=== PATIENT | female | born 1950 | race Caucasian/White ===

== ENCOUNTER 2016-12-21 04:19 | Inpatient (IN) | payer MEDICARE, BC ==
[2016-12-21] MEDS ORDERED: MAGNESIUM HYDROXIDE 2,400 MG/10 ML CUP PO PRN (06:28)
[2016-12-21] MEDS ORDERED: ACETAMINOPHEN TAB 325 MG TAB PO PRN (06:28)
[2016-12-21] MEDS ORDERED: ZIPRASIDONE 20 MG VIAL IM PRN (06:28)
[2016-12-21] MEDS ORDERED: MAG HYDROX/AL HYDROX/SIMETH 30 ML CUP PO PRN (06:28)
[2016-12-21] MEDS ORDERED: LORazepam 1 MG TAB PO PRN (06:31)
--- NOTE | 2016-12-21 11:15 | P.HP ---
Psychiatric H&P - . History & Physical: Allergies Allergy/AdvReac Type Severity Reaction Status Date / Time Sulfa (Sulfonamide Allergy Rash/Hives,blisters Verified 01/31/16 14:04 Antibiotics) on skin amoxicillin AdvReac Nausea & Verified 01/31/16 14:04 Vomiting & Diarrhea Penicillins AdvReac Nausea & Verified 01/31/16 14:04 Vomiting & Diarrhea Vital Signs Temp 97.9 F 12/21/16 06:18 Pulse 60 12/21/16 06:18 Resp 15 12/21/16 06:18 BP 138/77 12/21/16 06:18 Pulse Ox Intake & Output 12/20/16 12/21/16 12/21/16 18:59 06:59 18:59 Weight 51 kg 12/21/16 11:07 IDENTIFYING DATA: This patient is a 66-year-old female who was admitted to the mental health unit from [facility]. Apparently she overdosed with Xanax as a suicide attempt and was subsequently medically cleared and transferred to our unit. HPI: The patient is fairly lethargic. She is verbally arousable but it is challenging getting her to participate in a full interview. She does state that she's been feeling very depressed she's been tearful sleep has been poor appetite is decreased with subsequent weight loss and her energy has been low. She does admit to overdosing with Xanax quantity of pills unspecified. She states it was an attempt to . She finds herself provoked by her and describes him as a "prude, to him I can't do anything right". She states that she has been treated for depression with Paxil and works with a therapist Kati Ceballos at [facility]. It appears her primary care physician may be prescribing the Paxil. Again a full interview could not be completed. There is no documented history of hypomania xavier or psychosis. PAST PSYCHIATRIC HISTORY: 1 prior inpatient admission several years ago, no prior suicide attempts, she does not recall use of any other psychotropic medications, she reports being an active patient at [facility] PMH: Not clarified at this time, possible hypothyroidism. Medication record has a list of medications not yet confirmed ALLERGIES: Sulfa MEDICATIONS: To be confirmed CHEMICAL DEPENDENCY HISTORY: She reports using alcohol less than monthly no use of marijuana or any illicit drugs she's never been placed in residential treatment for chemical dependency reasons FAMILY PSYCHIATRIC HISTORY: Unknown FAMILY CHEMICAL DEPENDENCY HISTORY: Unknown SOCIAL HISTORY: The patient is 66 years old she is and resides with her . 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 No other information obtainable currently MENTAL STATUS EXAM: The patient is lying in bed she is lethargic she is able to only partially participate in an interview. We were able to get her seated upright in bed but only moments later she laid back down to fall asleep. She endorses a depressed mood affect is flat she endorses recent suicidal ideation but no homicidal ideation. No report or evidence of psychosis she does not present hypomanic or manic at this time. She is oriented to day of the week as being the month is December she identifies the year is 1971. She could not spontaneously name our current location but is aware it is a hospital in [place]. No other cognitive testing possible at this time. STRENGTHS/WEAKNESSES: Drinks: Housing, willingness to receive treatment weaknesses severe psychiatric symptoms possible marital discord INTELLECTUAL FUNCTIONING: Average IMPRESSIONS: [] 1. Major depressive disorder recurrent severe 2. Medical comorbidities to be clarified, recent Xanax overdose 3. Psychosocial dysfunction due to exacerbated symptoms of depression PLAN: The patient has been admitted to the mental health unit she verbalizes she is willing to stay here voluntarily. We will have nursing confirm her other medications and we will restart those that are necessary. The Paxil has been discontinued I will defer initiating another antidepressant until we have a more complete conversation. She will be seen by the applications support engineer for a routine medical consultation. Social work will meet with the patient as soon as possible to complete a psychosocial assessment and begin discharge planning. We will monitor her for safety and encourage her participation in the milieu as appropriate. We will involve her in treatment and discharge planning as she will allow.
[2016-12-21] MEDS ORDERED: Acetaminophen-Codeine 300-30mg TAB PO PRN (13:30)
[2016-12-21] MEDS ORDERED: ALBUTEROL INHALER 60 PUFF/8 GM INHALER INHALATION PRN (13:30)
[2016-12-21] MEDS ORDERED: CYCLOBENZAPRINE 10 MG TAB PO PRN (13:30)
[2016-12-21] MEDS ORDERED: NON-FORMULARY DRUG (Omega-3 Acid Ethyl Esters [Lovaza] 1 GM) PO SCH (13:30)
[2016-12-21] MEDS ORDERED: traMADol 50 MG TAB PO PRN (13:30)
[2016-12-21] MEDS: OXYBUTYNIN XL 5 MG TAB.ER.24 PO SCH (14:41)
[2016-12-21] MEDS: LEVOTHYROXINE 112 MCG TAB PO SCH (14:41)
[2016-12-21] MEDS: PRIMIDONE 50 MG TAB PO SCH (14:41)
[2016-12-21] MEDS: NICOTINE 21MG/24HR PATCH TRANSDERM SCH (14:46)
--- NOTE | 2016-12-21 16:52 | CONS ---
DATE OF CONSULTATION: 12/21/2016 REASON FOR CONSULTATION: Medical management requested by Dr. Ho. CONSULTATION: This is a 66-year-old patient of Dr. Angella Rebolledo who was transferred here from [facility]. Patient overdosed on Xanax 0.5 mg tablets; quantity unknown; apparently after getting into an argument with her . ( ) patient was transferred down here. Patient rather dizzy, lethargic, able to speak a few words and dozes off easily. Patient's chronic stable medical conditions include COPD, fibromyalgia, GERD, hyperlipidemia, osteoarthritis, rheumatoid arthritis, hypothyroid. Patient is a smoker. Review of systems is difficult to obtain, as patient is rather lethargic and dozes off. PAST MEDICAL HISTORY: 1. COPD. 2. Fibromyalgia. 3. GERD. 4. Hyperlipidemia. 5. Osteoarthritis. 6. Rheumatoid arthritis. 7. Hypothyroid. 8. Varicose veins. PAST SURGICAL HISTORY: 1. Hysterectomy. 2. Bone reduction, bilateral ulnar. 3. Carpal tunnel, bilateral. PAST PSYCH HISTORY: Anxiety, depression. SOCIAL HISTORY: . Smoking for close to 49 years. Alcohol occasionally. FAMILY HISTORY: Cancer, DVT. HOME MEDICATIONS: 1. Vitamin D3 1000 units p.o. daily. 2. Trazodone 300 mg p.o. at bedtime. 3. Ultram 50 mg p.o. q.4 p.r.n. 4. Vistaril 25 mg p.o. t.i.d. 5. Vesicare 10 mg p.o. daily. 6. Primidone 50 mg p.o. daily. 7. Paxil CR 37.5 mg p.o. daily. 8. Lovaza 1 gram p.o. b.i.d. 9. Singulair 10 mg p.o. at bedtime. 10. Synthroid 112 mcg p.o. daily. 11. Hydrochlorothiazide 25 mg p.o. daily. 12. Gabapentin 600 mg p.o. b.i.d. 13. Flonase 2 sprays each nostril daily. 14. Nexium 20 mg p.o. daily. 15. Colace 200 mg p.o. b.i.d. p.r.n. 16. Flexeril 10 mg p.o. daily p.r.n. 17. Calcium with vitamin D one tablet daily. 18. Qvar 80 mcg 2 puffs b.i.d. 19. Aspirin 325 p.o. daily. 20. ProAir 1 puff b.i.d. p.r.n. 21. Tylenol #3 one tablet q.i.d. p.r.n. 22. Xanax 0.5 p.o. b.i.d. p.r.n. ALLERGIES: 1. SULFA. 2. AMOXICILLIN. 3. PENICILLIN. On examination, temperature 97.9, pulse 60, respiration 15, blood pressure 138/77, pulse ox 97% on room air. GENERAL APPEARANCE: Lying in bed. Very lethargic but arousable. BMI 18.1. EYES: Pupils equal. Conjunctivae normal. HEENT: Oral cavity normal. NECK: JVD unable to assess. Mass not palpable. RESPIRATORY: Effort normal. LUNGS: Diminished breath sounds. CARDIOVASCULAR: First and second sounds normal. No edema. ABDOMEN: Soft, non-tender. Liver and spleen not palpable. LYMPHATIC: No lymph node palpable in neck or axillae. PSYCHIATRY: Unable to assess. Patient is rather lethargic. NEUROLOGICAL: Pupils equal. No facial asymmetry. Power and sensation grossly intact. Moving all 4 limbs. INVESTIGATIONS: Currently no labs. ASSESSMENT: 1. Overdose of Xanax 0.5, intentional. 2. Acute metabolic encephalopathy from Xanax. 3. Chronic obstructive pulmonary disease in a current smoker. 4. Chronic fibromyalgia. 5. Gastroesophageal reflux disease. 6. Hyperlipidemia. 7. Primary osteoarthritis in multiple joints. 8. Rheumatoid arthritis, chronic. 9. Hypothyroidism. PLAN: Patient's home medications will be resumed. Patient will be given a nicotine patch. Psych medicines as per Dr. Ho. Xanax is rather short-acting and should be out of the system in a few hours. Thank you, Dr. Ho.
[2016-12-21] MEDS: BECLOMETHASONE DIP 80 MCG/PUFF INHALER INHALATION SCH (21:12)
[2016-12-21] MEDS: GABAPENTIN 300 MG CAP PO SCH (21:58)
[2016-12-21] MEDS: MONTELUKAST 10 MG TAB PO SCH (21:58)
[2016-12-22] MEDS: LEVOTHYROXINE 112 MCG TAB PO SCH (06:03)
[2016-12-22] MEDS: PANTOPRAZOLE 40 MG TABLET PO SCH (09:29)
[2016-12-22] MEDS: ASPIRIN 325 MG TAB PO SCH (09:29)
[2016-12-22] MEDS: GABAPENTIN 300 MG CAP PO SCH ×2 (09:29→21:18)
[2016-12-22] MEDS: OXYBUTYNIN XL 5 MG TAB.ER.24 PO SCH (09:29)
[2016-12-22] MEDS: PRIMIDONE 50 MG TAB PO SCH (09:29)
[2016-12-22] MEDS: NICOTINE 21MG/24HR PATCH TRANSDERM SCH (09:36)
[2016-12-22] MEDS: BECLOMETHASONE DIP 80 MCG/PUFF INHALER INHALATION SCH ×2 (11:15→20:24)
--- NOTE | 2016-12-22 15:21 | P.PN ---
Progress Note - Text Interval history: The patient is found in her room she follows me to an interview room. She states that her mood is sad she's depressed and she is frequently tearful. She is alert today and does not appear lethargic. She states she recently saw Dr. Sparks and he titrated her Paxil CR to 50 mg. We discussed that she has been on that medication for numerous years in fact over a decade and it is likely no longer effective for her. We also discussed anticholinergic properties and decided to initiate a different SSRI. She did attend to meals today she has not attended groups. She states that there is an independent depression process going on but in the context of her not appreciating her. Mental status exam: The patient is a thin disheveled female appearing her stated age. Her hair is not brushed she is dressed in hospital gowns. She ambulates slowly without ataxia. Eye contact is good. She describes a depressed mood she is tearful during the session. She is able to demonstrate appropriate smiling however as well. She is endorsing no homicidal ideation intent or plan. She is endorsing no symptoms of psychosis there is no evidence of psychosis. She is oriented to person place and date. Insight and judgment limited. No psychomotor agitation. Plan: The patient will start Lexapro 10 mg daily. She has been successful with Paxil for several years so we will try another SSRI. We discussed potential benefits and side effects of Lexapro and her questions were answered. Vital signs reviewed. We will monitor her for safety and encourage her participation in the milieu.
[2016-12-22] MEDS: ESCITALOPRAM 10 MG TAB PO SCH (16:09)
--- NOTE | 2016-12-22 19:59 | PN ---
DATE OF SERVICE: 12/22/2016 PRESENTING COMPLAINT: Xanax overdose. INTERVAL HISTORY: This patient is status post Xanax overdose, now far more awake. Patient feeling tired, but did tolerate some diet. Review of systems done for constitutional, cardiovascular, cardiovascular, GI, pertinent relevant findings as above. Current medications are reviewed. On examination, temperature 97.6, pulse 59, respirations 16, blood pressure 127/58. General appearance: Sitting up, not in distress. EYES: Pupils equal. Conjunctivae normal. NECK: JVD not raised. Mass not palpable. RESPIRATORY : Effort normal. LUNGS: Diminished breath sounds. CARDIOVASCULAR: First and second sounds normal. No edema. ABDOMEN: Soft, nontender. Liver and spleen not palpable. PSYCHIATRY: Alert and oriented times three. Mood and affect low appearing. INVESTIGATIONS: No blood work from today. ASSESSMENT: 1. Overdose of Xanax 0.5 intentional now resolved. 2. Acute metabolic encephalopathy from Xanax on presentation, now resolved. 3. Chronic obstructive pulmonary disease in a smoker. 4. Chronic fibromyalgia. 5. Gastroesophageal reflux disease. 6. Hyperlipidemia. 7. Primary osteoarthritis in multiple joints. 8. Rheumatoid arthritis, chronic. 9. Hypothyroidism. Care was discussed with the patient. Continue current medications and treatment plan.
[2016-12-22] MEDS: MONTELUKAST 10 MG TAB PO SCH (21:19)
[2016-12-22 22:05] LABS: Appearance,Urine Clear (Clear); Bacteria,Urine Rare /hpf; Bilirubin,Urine Negative (Negative); Glucose,Urine (UA) Negative (Negative); Ketones,Urine Negative (Negative); Leukocyte Esterase,Urine Small (Negative); Mucus,Urine Rare /hpf; Nitrite,Urine Positive (Negative); Particle Count 35323; Protein,Urine Negative (Negative); Squamous Epithelial Cell,Urine 2 /hpf (0-4); UA Billing (MACRO vs. MICRO) MICRO; Urobilinogen,Urine <2.0 mg/dL (<2.0); WBC,Urine 5 /hpf (0-5)
[2016-12-23] MEDS: LEVOTHYROXINE 112 MCG TAB PO SCH (06:50)
[2016-12-23] MEDS: PANTOPRAZOLE 40 MG TABLET PO SCH (07:59)
[2016-12-23] MEDS: PRIMIDONE 50 MG TAB PO SCH (08:54)
[2016-12-23] MEDS: ESCITALOPRAM 10 MG TAB PO SCH (08:54)
[2016-12-23] MEDS: NICOTINE 21MG/24HR PATCH TRANSDERM SCH (08:54)
[2016-12-23] MEDS: ASPIRIN 325 MG TAB PO SCH (08:55)
[2016-12-23] MEDS: OXYBUTYNIN XL 5 MG TAB.ER.24 PO SCH (08:55)
[2016-12-23] MEDS: GABAPENTIN 300 MG CAP PO SCH ×2 (08:55→21:10)
--- NOTE | 2016-12-23 09:37 | P.PN ---
Progress Note - Text Interval history: The patient is found in the hallway she follows me to an interview room. She states that she did attend group this morning. She is troubled that she had some difficulty sleeping last night. She had a visit from her daughter in that was supportive. She states that they both agree that the patient's and be irritable and overly critical. She states her children have demanded that he go to counseling. The patient reports that her appetite is improving. We reviewed her medication she has no questions or concerns. Mental status exam: The patient is a thin female appearing her stated age. She has a disheveled appearance she is dressed in hospital gowns. Eye contact is good speech is fluent spontaneous nonpressured. She endorses a depressed mood she again is tearful during the session in discussing her 's behavior. She does find this overwhelming. She feels safe here in the hospital and is expressing no acute suicidal ideation here no homicidal ideation. No report or evidence of psychosis hypomania or xavier. She demonstrates no psychomotor slowing or agitation. She is oriented to person place and date. Plan: The patient will continue on her current medications we will utilize Ambien 5 mg at bedtime while she is in the hospital. We will monitor her for safety encourage her participation in the milieu. Vital signs reviewed.
[2016-12-23] MEDS: BECLOMETHASONE DIP 80 MCG/PUFF INHALER INHALATION SCH (11:06)
[2016-12-23 13:04] VITALS: BMI 18.3
[2016-12-23] MEDS: MONTELUKAST 10 MG TAB PO SCH (21:11)
[2016-12-23] MEDS: ZOLPIDEM 5 MG TAB PO SCH (21:12)
[2016-12-24] MEDS: PANTOPRAZOLE 40 MG TABLET PO SCH (06:50)
[2016-12-24] MEDS: LEVOTHYROXINE 112 MCG TAB PO SCH (06:51)
[2016-12-24] MEDS: ESCITALOPRAM 10 MG TAB PO SCH (09:34)
[2016-12-24] MEDS: PRIMIDONE 50 MG TAB PO SCH (09:35)
[2016-12-24] MEDS: OXYBUTYNIN XL 5 MG TAB.ER.24 PO SCH (09:35)
[2016-12-24] MEDS: ASPIRIN 325 MG TAB PO SCH (09:35)
[2016-12-24] MEDS: GABAPENTIN 300 MG CAP PO SCH ×2 (09:35→20:47)
[2016-12-24] MEDS: NICOTINE 21MG/24HR PATCH TRANSDERM SCH (09:36)
--- NOTE | 2016-12-24 10:24 | P.PN ---
Progress Note - Text Interval history: The patient is found in group she follows me to an interview room. She reports having a pleasant visit with her daughter and stepdaughter last evening. She is hoping that her will follow-through with counseling to address his anger. The patient remains compliant with her medication. Sleep was improved last night with Ambien up until the fire drill. The patient reports she is beginning to feel more hopeful and feels outpatient mental health services will be of benefit. Mental status exam: The patient is alert she seated calmly she is dressed in her own clothing. Eye contact is appropriate. Speech is fluent spontaneous nonpressured. She is noticed to have a tremor or tic involving her lower lip. She states that has been a chronic phenomenon. She states that suicidal thoughts are resolving she is feeling more hopeful. She is endorsing no homicidal ideation intent or plan. No evidence or report of psychosis she does not appear hypomanic or manic. She is oriented to person place and date. Insight and judgment improving. Plan: The patient will continue on her current medication we will anticipate a discharge possibly tomorrow. Social work will arrange a support meeting likely involving her . We will continue to monitor for safety.
[2016-12-24] MEDS: BECLOMETHASONE DIP 80 MCG/PUFF INHALER INHALATION SCH ×2 (10:45→21:46)
[2016-12-24] MEDS: ZOLPIDEM 5 MG TAB PO SCH (20:47)
[2016-12-24] MEDS: MONTELUKAST 10 MG TAB PO SCH (20:47)
[2016-12-24 20:50] VITALS: RESP 18
[2016-12-25 06:23] VITALS: BP 111/77; PULSE 62; TEMP 97.8
[2016-12-25] MEDS: LEVOTHYROXINE 112 MCG TAB PO SCH (06:34)
--- NOTE | 2016-12-25 08:41 | P.DS ---
Providers Date of admission: 12/21/16 05:09 Expected date of discharge: 12/25/16 Attending physician: Malik Soto Consults: 12/21/16 06:28 Consult Physician Routine Consulting Provider: Nolan Stearns Consult Reason/Comments: medial management Do you want consulting provider notified?: Yes, Notify in am Primary care physician: Nolan Stearns - Discharge Diagnosis(es) (1) Major depressive disorder, recurrent severe without psychotic features Current Visit: Yes Status: Acute Priority: High Hospital Course: Brief summary of admission note: The patient is a 66-year-old female who was admitted to the mental health unit from [facility]. The patient reportedly overdosed with Xanax as a suicide attempt. She was medically cleared and transferred to our unit. The patient reported that she's been feeling very depressed, tearful on a regular basis, experiencing poor appetite with weight loss and low energy. She reports overdosing as she felt overwhelmed with her 's behavior. She stated he was overly critical and she felt like she couldn't do anything right. She had been treated with Paxil for numerous years and it appears that the medication is no longer providing benefit. For full details please refer to my psychiatric evaluation dated 12/21. Summary of hospital course: The patient was admitted to the mental health unit she did sign in voluntarily. We reviewed her medication options in the context of her presenting symptoms. We decided to discontinue Paxil and initiate Lexapro 10 mg daily. The patient underwent a routine medical consultation. The patient demonstrated no agitated behavior. She reported a progressive improvement of symptoms while here. She was lethargic the first day I met with her but subsequent to that she was alert and cooperative. She did have beneficial conversations with her daughter and stepdaughter and even her . She feels that they have made some changes that will make it more conducive to working out their differences. She notes a resolution of her suicidal thoughts. Mental status exam: The patient is a thin female appearing her stated age. Eye contact is appropriate speech is fluent nonpressured and is spontaneous. She reports her mood is "much better" affect is euthymic. She is reporting no hopelessness thinking no suicidal or homicidal ideation intent or plan. She is endorsing no auditory or visual hallucinations she is endorsing no specific delusions there is no evidence of psychosis at this time. She does not appear to be hypomanic or manic. Insight and judgment have improved. Cognitively she remains oriented to person place and date. There is no psychomotor slowing or agitation there is no verbal or physical aggressiveness demonstrated. Impressions 1. Major depressive disorder recurrent severe without psychosis 2. Medical comorbidities, presenting with Xanax overdose 3. Psychosocial dysfunction due to exacerbated symptoms of depression in the context of marital strain Plan: The patient will be discharged home today. She will continue on Lexapro 10 mg daily. She will follow up with her primary care physician as needed. Social work will arrange the patient's outpatient mental health follow-up. The patient is reporting no suicidal or homicidal ideation she is able to participate in her own activities of daily living. She is instructed to return to the hospital with any acute safety concerns. She is encouraged not to use Xanax or any other benzodiazepine. Patient Condition at Discharge: Stable Plan - Discharge Summary New Discharge Prescriptions: Escitalopram [Lexapro] 10 mg PO DAILY #30 tab Discharge Medication List Cyclobenzaprine [Flexeril] 10 mg PO TID PRN 06/29/15 [History] Montelukast Sodium [Singulair] 10 mg PO HS 06/29/15 [History] Marlin-3 Acid Ethyl Esters [Lovaza] 1 gm PO BID 06/29/15 [History] Albuterol Sulfate [Proair Hfa] 1 puff INHALATION RT-BID PRN 01/31/16 [History] Beclomethasone Dipropionate [Qvar 80 mcg/puff] 2 puff INHALATION RT-BID [History] Calcium Carbonate/Vitamin D3 [Calcium 600-Vit D3 400 Tablet] 1 tab PO DAILY [History] Cholecalciferol [Vitamin D3] 1,000 unit PO DAILY 01/31/16 [History] Levothyroxine Sodium [Synthroid] 112 mcg PO QAM 02/06/16 [History] Acetaminophen with Codeine [Acetaminophen-Cod #3 Tablet] 1 tab PO QID PRN [History] Aspirin 325 mg PO DAILY 12/21/16 [History] Docusate [Colace] 200 mg PO BID PRN 12/21/16 [History] Esomeprazole Magnesium [NexIUM] 20 mg PO DAILY 12/21/16 [History] Fluticasone Nasal Nickerson [Flonase Nasal Nickerson] 2 spr EA NOSTRIL DAILY 12/21/16 [ History] Gabapentin 600 mg PO BID 12/21/16 [History] Hydrochlorothiazide [Hydrodiuril] 25 mg PO DAILY 12/21/16 [History] Primidone 50 mg PO DAILY 12/21/16 [History] Solifenacin Succinate [Vesicare] 10 mg PO DAILY 12/21/16 [History] hydrOXYzine PAMOATE [Vistaril] 25 mg PO TID 12/21/16 [History] Escitalopram [Lexapro] 10 mg PO DAILY #30 tab 12/25/16 [Rx]
[2016-12-25] MEDS: BECLOMETHASONE DIP 80 MCG/PUFF INHALER INHALATION SCH (09:02)
[2016-12-25] MEDS: PANTOPRAZOLE 40 MG TABLET PO SCH (09:22)
[2016-12-25] MEDS: ASPIRIN 325 MG TAB PO SCH (09:22)
[2016-12-25] MEDS: OXYBUTYNIN XL 5 MG TAB.ER.24 PO SCH (09:22)
[2016-12-25] MEDS: ESCITALOPRAM 10 MG TAB PO SCH (09:22)
[2016-12-25] MEDS: PRIMIDONE 50 MG TAB PO SCH (09:22)
[2016-12-25] MEDS: GABAPENTIN 300 MG CAP PO SCH (09:22)
== END 2016-12-25 12:48 | disposition home or self-care (01) | DRG 885 ==
LOC: 3MHU 05:09
PROVIDERS: ADMIT Psychiatry & Neurology Psychiatry; ATTEND Psychiatry & Neurology Psychiatry
DX: F33.2 Major depressive disorder, recurrent severe without psychotic features (principal); G92 Toxic encephalopathy; E03.9 Hypothyroidism, unspecified; E78.5 Hyperlipidemia, unspecified; F17.200 Nicotine dependence, unspecified, uncomplicated; J44.9 Chronic obstructive pulmonary disease, unspecified; K21.9 Gastro-esophageal reflux disease without esophagitis; M06.9 Rheumatoid arthritis, unspecified; M15.9 Polyosteoarthritis, unspecified; M79.7 Fibromyalgia; T42.4X1A Poisoning by benzodiazepines, accidental (unintentional), initial encounter; Z79.899 Other long term (current) drug therapy; F59 Unspecified behavioral syndromes associated with physiological disturbances and physical factors
CPT/HCPCS: 81001

== ENCOUNTER → 2018-12-17 | Outpatient (CLI) | payer MEDICARE ==
--- NOTE | 2018-12-19 09:43 | MM ---
Reason for exam: screening (asymptomatic). Last mammogram was performed 3 years and 2 months ago. History: Patient is postmenopausal and history of other cancer. Family history of breast cancer in sister. Benign excisional biopsy, November 03, 2001. Took hormonal contraceptives for 2 years. Physical Findings: A clinical breast exam by your physician is recommended on an annual basis and results should be correlated with mammographic findings. MG 3D Screening Mammo W/Cad Bilateral CC and MLO view(s) were taken. Prior study comparison: October 10, 2015, mammogram, performed at [facility]. January 27, 2014, mammogram, performed at [facility]. The breast tissue is heterogeneously dense. This may lower the sensitivity of mammography. No suspicious abnormality. No significant changes when compared with prior studies. ASSESSMENT: Negative, BI-RAD 1 RECOMMENDATION: Routine screening mammogram of both breasts in 1 year.
== END | disposition home or self-care (01) ==
LOC: RADMAMWWP 13:40
PROVIDERS: ATTEND Family Medicine
DX: Z12.31 Encounter for screening mammogram for malignant neoplasm of breast (principal)
CPT/HCPCS: 77063; 77067

== ENCOUNTER → 2019-11-20 | Outpatient (CLI) | payer MEDICARE ==
--- NOTE | 2019-11-20 13:07 | US ---
EXAMINATION TYPE: US venous doppler duplex LE DATE OF EXAM: 11/20/2019 12:21 PM COMPARISON: NONE CLINICAL HISTORY: M79.662 PAIN LT LOWER LIMB,R22.42 SWELLING LT LOWER LIMB. No hx DVT. No redness. No swelling. No leg pain. Left big toe pain. Not on blood thinners. SIDE PERFORMED: Bilateral TECHNIQUE: The lower extremity deep venous system is examined utilizing real time linear array sonog janice with graded compression, doppler sonography and color-flow sonography. VESSELS IMAGED: External Iliac Vein (EIV) Common Femoral Vein Deep Femoral Vein Greater Saphenous Vein * Femoral Vein Popliteal Vein Small Saphenous Vein * Proximal Calf Veins (* superficial vessels) Right Leg: Negative for DVT Left Leg: Negative for DVT IMPRESSION: 1. Bilateral lower extremity ultrasound negative for deep venous thrombosis.
--- NOTE | 2019-11-25 10:19 | P.ARTDOP ---
Arterial Doppler LOWER EXTREMITY ARTERIAL DOPPLER: DATE OF SERVICE: 11/20/2019 Reason for study: Pain left foot. Doppler waveforms: Multiphasic to the popliteal on the right and atypical below. Multiphasic at the left femoral, atypical at the popliteal and monophasic below.. Pulse volume recording: []. Pressure gradients: Infrapopliteal on the right and across the popliteal and infrapopliteal on the left. Ankle-brachial indices: 0.74 on the right and 0.46 on the left. Toe brachial indices: [] on the right, [] on the left Impression: Moderate infrapopliteal disease on the right. Moderate to severe disease left popliteal and below. Clinical correlation recommended. Consider vascular surgical consultation..
== END | disposition home or self-care (01) ==
LOC: RADUSWWP 11:45
PROVIDERS: ATTEND Family Medicine
DX: I77.89 Other specified disorders of arteries and arterioles (principal); M79.662 Pain in left lower leg; R22.42 Localized swelling, mass and lump, left lower limb; R09.89 Other specified symptoms and signs involving the circulatory and respiratory systems
CPT/HCPCS: 93923; 93970

== ENCOUNTER → 2021-02-21 | Outpatient (CLI) | payer MEDICARE ==
--- NOTE | 2021-02-21 12:48 | BD ---
EXAMINATION TYPE: Axial Bone Density DATE OF EXAM: 02/21/2021 COMPARISON: NONE CLINICAL HISTORY: 70 YR OLD FEMALE,,,,ICD-10 CODE: Z78 POST MENOPAUSAL Height: 63.9 Weight: 120 FRAX RISK QUESTIONS: Family History (Parent hip fracture): NO FX Glucocorticoids (More than 3mos): YES (Ex: prednisone, prednisolone, methylprednisolone, dexamethasone, and hydrocortisone). 3. Menopause before 45: AT 43 YRS OLD Current Tobacco Use: YES RISK FACTORS HISTORY OF: Family History of Osteoporosis: YES, HER MOTHER, NO HIP FX Diet low in dairy products/other sources of calcium: YES, LACTOSE INTOLERANT Postmenopausal woman: YES, HYST AT AGE 43 Hyperparathyroidism: NO Adrenal Insufficiency: NO MEDICATIONS: Prednisone or other steroids: YES, QVAR AND PRO AIR, ASTHMA, COPD, EMPHYSEMA How Long: OVER 15 YRS Thyroid Medications: YES, SYNTHROID, FOR ABOUT 20+ YRS Additional Medications: ANTI-DEPRESSANTS AND ANTI ANXIETY MEDS, CRESTOR, VIT D AND CALCIUM Additional History: DEPRESSION, CHOLESTEROL, ASTHMA, COPD, EMPHYSEMA, ARTHRITIS, LT TKR EXAM MEASUREMENTS: Bone mineral densitometry was performed using the [employer] System. Bone mineral density as measured about the Lumbar spine is: ----- L1-L4(G/cm2): 0.941 T Score Values are as follows: ----- L1: -2.1 ----- L2: -2.1 ----- L3: -2.0 ----- L4: -1.9 ----- L1-L4: -2.0 Bone mineral density FIRST BONE DENSITY AT [facility] Bone mineral density about the R hip (g/cm2): 0.743 Bone mineral density about the L hip (g/cm2): 0.682 T Score values are as follows: -----R Neck: -2.4 -----L Neck: -2.9 -----R Total: -2.1 -----L Total: -2.6 Bone mineral density FIRST BONE DENSITY AT [facility] FRAX%S: THERE IS A 29.8% CHANCE FOR A MAJOR OSTEOPOROTIC FX AND A 17.0% FOR HIP.....PROBABILITY FO R FX IN 10 YRS TIME IMPRESSION: Osteoporosis (T Score less than -2.5). There is increased fracture risk and therapy is usually indicated based on age. Re-Screen 1-2 years. NOTE: T-SCORE=SD OF THE YOUNG ADULT MEAN.
--- NOTE | 2021-02-22 13:51 | MM ---
Reason for exam: screening (asymptomatic). Last mammogram was performed 2 years and 2 months ago. History: Patient is postmenopausal and history of other cancer. Family history of breast cancer in sister. Benign excisional biopsy, November 03, 2001. Took hormonal contraceptives for 2 years. Physical Findings: A clinical breast exam by your physician is recommended on an annual basis and results should be correlated with mammographic findings. MG Screening Mammo w CAD Bilateral CC and MLO view(s) were taken. Prior study comparison: December 17, 2018, bilateral MG 3d screening mammo w/cad. October 10, 2015, mammogram, performed at [facility]. The breast tissue is heterogeneously dense. This may lower the sensitivity of mammography. No significant changes when compared with prior studies. ASSESSMENT: Benign, BI-RAD 2 RECOMMENDATION: Routine screening mammogram of both breasts in 1 year.
== END | disposition home or self-care (01) ==
LOC: RADBDWWP 10:31
PROVIDERS: ATTEND Family Medicine
DX: Z12.31 Encounter for screening mammogram for malignant neoplasm of breast (principal); M81.0 Age-related osteoporosis without current pathological fracture; M85.89 Other specified disorders of bone density and structure, multiple sites; Z78.0 Asymptomatic menopausal state; Z80.3 Family history of malignant neoplasm of breast
CPT/HCPCS: 77067; 77080

== ENCOUNTER → 2022-02-22 | Outpatient (CLI) | payer MEDICARE ==
--- NOTE | 2022-02-23 12:53 | MM ---
Reason for exam: screening (asymptomatic). Last mammogram was performed 1 year ago. History: Patient is postmenopausal and history of other cancer. Family history of breast cancer in sister. Benign excisional biopsy, November 03, 2001. Took hormonal contraceptives for 2 years. Physical Findings: A clinical breast exam by your physician is recommended on an annual basis and results should be correlated with mammographic findings. MG Screening Mammo w CAD Bilateral CC and MLO view(s) were taken. Prior study comparison: February 21, 2021, bilateral MG screening mammo w CAD. December 17, 2018, bilateral MG 3d screening mammo w/cad. The breast tissue is heterogeneously dense. This may lower the sensitivity of mammography. Focal asymmetry upper left MLO. ASSESSMENT: Incomplete: need additional imaging evaluation, BI-RAD 0 RECOMMENDATION: Special view mammogram of the left breast. If lesion persists on supplemental views, image directed ultrasound is recommended. [facility] will attempt to contact patient to return for supplemental views and ultrasound if indicated.
== END | disposition home or self-care (01) ==
LOC: RADMAMWWP 12:26
PROVIDERS: ATTEND Family Medicine
DX: Z12.31 Encounter for screening mammogram for malignant neoplasm of breast (principal); Z78.0 Asymptomatic menopausal state; Z80.3 Family history of malignant neoplasm of breast
CPT/HCPCS: 77067

== ENCOUNTER → 2022-02-27 | Outpatient (CLI) | payer MEDICARE ==
--- NOTE | 2022-02-27 13:38 | MM ---
Reason for Exam: Additional evaluation requested from abnormal screening. Last screening mammogram was performed less than 1 month ago. Patient History: Menarche at age 11. First Full-Term at age 21. Hysterectomy at age 48. Postmenopausal. Other cancer at or over age 48. Patient used Hormonal Contraceptives for 2 years. Benign Excisional Biopsy. Sister had breast cancer at or over age 50. Risk Values: Roxie 5 year model risk: 4.0%. NCI Lifetime model risk: 9.6%. Film Views: 3D and 2D Synthesized Left spot compression CC views were taken. 3D and 2D Synthesized Left spot compression MLO views were taken. 3D and 2D Synthesized Left LM views were taken. Prior Study Comparison: 12/17/2018 Bilateral Screening Mammogram, [facility]. 02/21/2021 Bilateral Screening Mammogram, [facility]. 02/22/2022 Bilateral Screening Mammogram, [facility]. Tissue Density: Left: There are scattered fibroglandular densities. Findings: Analyzed By CAD. The questioned superior focal asymmetry disperses on additional views. Old post excisional changes are demonstrated. No significant change from prior exams. Overall Assessment: Benign, BI-RAD 2 Management: Screening Mammogram of both breasts in 1 year. 1.) Patient should continue monthly self breast exams. 2.) A clinical breast exam by your physician is recommended on an annual basis and results should be correlated with mammographic findings. Results were given to the patient verbally at the time of exam.
== END | disposition home or self-care (01) ==
LOC: RADMAMWWP 12:35
PROVIDERS: ATTEND Family Medicine
DX: R92.8 Other abnormal and inconclusive findings on diagnostic imaging of breast (principal); Z78.0 Asymptomatic menopausal state; Z80.3 Family history of malignant neoplasm of breast
CPT/HCPCS: 77065; G0279; 77061

== ENCOUNTER → 2022-09-12 | Outpatient (CLI) | payer MEDICARE ==
--- NOTE | 2022-09-12 15:18 | XR ---
EXAMINATION TYPE: XR lumbar spine 2 or 3V DATE OF EXAM: 09/12/2022 Comparison: None Clinical History: 72-year-old female M51.36 Lumbar disc degeneration Findings: Osteopenia. 5 lumbar type vertebral bodies. Hypertrophic facet arthropathy throughout. Vertebral body heights and alignment are maintained. Disc interspaces also relatively maintained. Impression: Osteopenia with hypertrophic facet arthropathy. No vertebral compression collapse or malalignment see n.
== END | disposition home or self-care (01) ==
LOC: RADXRMAIN 14:13
PROVIDERS: ATTEND Physician Assistant Medical
DX: M47.816 Spondylosis without myelopathy or radiculopathy, lumbar region (principal); M51.36 Other intervertebral disc degeneration, lumbar region
CPT/HCPCS: 72100

== ENCOUNTER → 2022-09-12 | Outpatient (CLI) | payer MEDICARE ==
[2022-09-12 13:48] VITALS: BP 138/90; PULSE 104; RESP 16; TEMP 98
--- NOTE | 2022-09-12 14:45 | P.PAINPG ---
Objective - Vital Signs Vital signs: Intake & Output 09/11/22 09/12/22 09/12/22 18:59 06:59 18:59 Weight 55.792 kg PQRS Measure Charge Sheet Comment: HISTORY OF PRESENT ILLNESS: 72 yr old female as a referral from Dr Banks presents today w severe and chronic LBP secondary to for evaluation. Pt states pain level is at 8/10 in intensity w provocation, constant, localized in the mid to lower lumbar spine, achy in character without radiating pain. Pain is provoked by waling/ bending/ standing for periods of 15 min or more. Pain is alleviated by PT integrated w massage in 2003, injections, heat, meds (Ibu, Tylenol ES, Salon Pas), repositioning and rest. PMH: Asthma, COPD, Fibromyalgia, GERD, Hyperlipidemia, OA, OP, RA, Hypothyroidism, MDD/ Anxiety PSH: Hysterectomy, BL Ulnar Reduction Surgery, BL Carpal Tunnel Release SH: 49 pack/ yr tobacco use (Quit 1965), Occasional ETOH use, No illicit drug use FH: Mo- No Reported History. Fa- No Reported History. Sis- CA/ DVT. All: See list Meds: See list REVIEW OF ORGAN SYSTEMS: CONSTITUTIONAL: No fevers or chills. No recent weight loss. NEUROLOGICAL: + numbness and tingling along the distal extremities. No seizure disorders or headaches. MUSCULOSKELETAL: + pain PSYCHIATRIC: Denies current depression or suicidal thoughts. Physical Examinations : Constitutional : Cooperative , not in acute distress . Neurologic : Cranial nerve II to XII intact. No focal neurological deficits. Psychiatric : alert & oriented x 3. Matching mood & appropriate affect. Judgment & insight intact. Musculoskeletal : Cervical Spine Motor strength in the deltoid and biceps: Normal right side. Normal Left side Motor strength biceps and the wrist extensors: Normal right side . Normal left side Motor strength in the triceps muscle: Normal right side. Normal left side Deep tendon reflexes: Normal at the biceps. Normal at Brachioradialis. Normal at triceps Vertebral body tenderness to deep palpation over Cervical facet loading test: positive bilaterally Spurling test: positive bilaterally Neck distraction test: positive bilaterally Miles sign: positive bilaterally Lumbar spine Motor strength lower extremities ,thigh and legs 5/5 Right side , 5/5 Left side Deep tendon reflexes : Normal Knee Jerk. Normal Ankle Jerk Vertebral body tenderness over Lumbar facet Loading Test: positive Right / positive Left over BL L4-L5, L5-S1 Range of motion of the lumbar spine Flexion 30 degrees, extension 10 degrees Straight Leg Raise test: Left/ Right positive at degree Angelito test: positive right / positive left. Severe tenderness over the Sacroiliac joint on the Right / Left sides Gaenslen test: positive bilaterally Seated flexion test: positive bilaterally. Sacral spine : Severe tenderness over the Sacroiliac joint: right side / left side Range of motion: Flexion of the lumbar spine <60 degrees Range of motion: Extension of the lumbar spine <20 degrees Gaenslen's Test positive Zeeshan's Test positive Angelito test: positive right side / left side Thigh Thrust Test Sacral Thrust Test Imaging: None on file Assessment/ Plan : Lumbar DDD Recommendation of Lumbar x ray re: M51.36. Will also benefit from PT 2 x / wk x 6 wks re: M51.36 Pt may need additional testing if indicated. She may return to this clinic in 6 wks for a reevaluation. All questions answered. I have spent greater than 30 minutes on patient care today. Dr Amaro was available by phone for the evaluation of this patient. The time was used to review the medical records including relevant urine studies and Prescription history (MAPs), review of the available imaging, evaluation and examination of the patient, coordination of care with the medical staff and if applicable referring physicians, as well as creation of the medical record PQRS Narrative: Smoking Status Current every day smoker Home Medications: Ambulatory Orders Cyclobenzaprine [Flexeril] 10 mg PO TID PRN 06/29/15 Montelukast Sodium [Singulair] 10 mg PO HS 06/29/15 [place]-3 Acid Ethyl Esters [Lovaza] 1 gm PO BID 06/29/15 Albuterol Sulfate [Proair Hfa] 1 puff INHALATION RT-BID PRN 01/31/16 Beclomethasone Dipropionate [Qvar 80 mcg/puff] 2 puff INHALATION RT-BID 01/31/16 Calcium Carbonate/Vitamin D3 [Calcium 600-Vit D3 400 Tablet] 1 tab PO DAILY 01/31/16 Cholecalciferol [Vitamin D3 (25 Mcg = 1000 Iu)] 1,000 unit PO DAILY 01/31/16 Levothyroxine Sodium [Synthroid] 112 mcg PO QAM 02/06/16 Acetaminophen with Codeine [Acetaminophen-Cod #3 Tablet] 1 tab PO QID PRN 12/21/16 Aspirin 325 mg PO DAILY 12/21/16 Docusate [Colace] 200 mg PO BID PRN 12/21/16 Esomeprazole Magnesium [NexIUM] 20 mg PO DAILY 12/21/16 Fluticasone Nasal [place] [Flonase Nasal [place]] 2 spr EA NOSTRIL DAILY 12/21/16 Gabapentin 600 mg PO BID 12/21/16 Primidone 50 mg PO DAILY 12/21/16 Solifenacin Succinate [Vesicare] 10 mg PO DAILY 12/21/16 hydrOXYzine pamoate [Vistaril] 25 mg PO TID 12/21/16 hydroCHLOROthiazide [Hydrodiuril] 25 mg PO DAILY 12/21/16 Escitalopram [Lexapro] 10 mg PO DAILY #30 tab 12/25/16 Controlled Substance Measures - Controlled Substance Measures Is patient prescribed a controlled substance at discharge?: No
== END ==
LOC: PNWHC3 13:15
PROVIDERS: ATTEND Specialist
DX: M51.36 Other intervertebral disc degeneration, lumbar region (principal); F17.200 Nicotine dependence, unspecified, uncomplicated; Z88.2 Allergy status to sulfonamides; Z88.0 Allergy status to penicillin
CPT/HCPCS: 99211

== ENCOUNTER → 2022-10-25 | Outpatient (CLI) | payer MEDICARE ==
[2022-10-25 13:47] VITALS: BP 120/77; PULSE 83; RESP 16; TEMP 98.1
--- NOTE | 2022-10-25 14:46 | P.PAINPG ---
Objective - Vital Signs Vital signs: Vital Signs Temp 98.1 F 10/25/22 13:42 Pulse 83 10/25/22 13:42 Resp 16 10/25/22 13:42 BP 120/77 10/25/22 13:42 Pulse Ox 96 10/25/22 13:42 FiO2 Intake & Output 10/24/22 10/25/22 10/25/22 18:59 06:59 18:59 Weight 55.792 kg PQRS Measure Charge Sheet Mode of Arrival: Ambulatory Comment: A 72 yr old female with a history of severe and chronic low back pain secondary to lumbar DDD and spondylosis with facet arthropathy without myelopathy presents today for x ray results. Pain level is provoked at 9/10 in intensity, constant, localized in the R lumbar spine, dull/ achy in character without shooting pain. Pain is provoked by lifting, walking for periods of 10 min or more. Pain is alleviated with PT x 6 wks which she completed in Sep 2022, home exercise daily, heat, meds (Tyl, Advil), repositioning and rest. Interventional pain procedures completed include Denies Patient is currently on Tylenol OTC, Advil OTC Patient denies any side effects of the medication(s), denies excessive drowsiness or sleepiness, denies suicidal ideation and reports that the current pain medication is helping to control the pain and improve activities of daily living. Patient denies any motor or sensory deficits. Patient denies any fever or night sweats, denies any change in the bowel movements or urination. Physical Examination: -Constitutional: Cooperative. Not in acute distress . - Neurologic: Cranial nerve II to XII intact. No focal neurological deficits. - Psychatric: Alert & oriented x 3. Matching mood & appropriate affect. Judgment and insight intact. - Musculoskeletal: Cervical spine: Muscle bulk/ tone/ strength in the bilateral upper extremities normal Vertebral body tenderness to palpation over Spurling test positive Distraction test positive Facet loading test positive Thoracic spine Muscle bulk / tone/ strength in the bilateral paraspinal muscles normal Vertebral body tender to palpation over Facet loading test positive Lumbar spine: Motor bulk/ tone/ strength lower extremities , thigh and legs : 5/5 Deep tendon reflexes : Normal Knee Jerk. Normal Ankle Jerk . Vertebral body tenderness to palpation over Lumbar Facet Loading Test positive Straight Leg Raise: positive at 30 degrees right side/ left side Gaenslen's Test positive Sacral spine : Severe tenderness over the Sacroiliac joint: right side / left side Range of motion: Flexion of the lumbar spine <60 degrees Range of motion: Extension of the lumbar spine <20 degrees Gaenslen's Test positive BL Angelito test: positive right side / left side Thigh Thrust Test BL Sacral Thrust Test Assessment and plan: Chronic low back pain secondary to lumbar DDD, spondylosis with facet arthropathy without myelopathy, BL Sacroiliitis Recommendation of MRI without contrast of the lumbar spine re: M51.36 May return to this clinic within 2 wks for a re evaluation. Recommendation of BL SI injection. May need a series of injections for optimal pain relief. Risks, benefits of procedure discussed and pt verbalized understanding. Admits anticoagulant use or medical history of diabetes. Protocol for discontinuation/ continuation of medications lucy procedure discussed. All patient questions answered I have spent less than 30 minutes on patient care today. Dr Amaro was available by phone for the evaluation of this patient. The time was used to review the medical records including relevant urine studies and Prescription history (MAPs), review of the available imaging, evaluation and examination of the patient, coordination of care with the medical staff and if applicable referring physicians, as well as creation of the medical record - Pain Location Lower Back Non-Pharmacological Interventions: Heat, Home Exercise, Inactivity, Physical Therapy, Position/Reposition, Stretching Pharmacological Interventions: PRN Medication PQRS Narrative: Smoking Status Current every day smoker Blood Pressure 120/77 Pain Intensity [Lower Back] 0 Scale Used Numeric (1 - 10) Hx Alcohol Use (MH) No Home Medications: Ambulatory Orders Montelukast Sodium [Singulair] 10 mg PO HS 06/29/15 Albuterol Sulfate [Proair Hfa] 1 puff INHALATION RT-BID PRN 01/31/16 Beclomethasone Dipropionate [Qvar 80 mcg/puff] 2 puff INHALATION RT-BID 01/31/16 Calcium Carbonate/Vitamin D3 [Calcium 600-Vit D3 400 Tablet] 1 tab PO DAILY 01/31/16 Cholecalciferol [Vitamin D3 (25 Mcg = 1000 Iu)] 1,000 unit PO DAILY 01/31/16 Levothyroxine Sodium [Synthroid] 112 mcg PO QAM 02/06/16 Solifenacin Succinate [Vesicare] 10 mg PO DAILY 12/21/16 Alendronate Sodium [Fosamax] 10 mg PO DAILY 10/25/22 Ezetimibe [Zetia] 10 mg PO DAILY 10/25/22 Primidone [Mysoline] 50 mg PO DAILY 10/25/22 Rosuvastatin [Crestor] 10 mg PO DAILY 10/25/22 Topiramate [Topamax] 25 mg PO DAILY 10/25/22 busPIRone HCl [Buspar] 5 mg PO BID 10/25/22 Controlled Substance Measures - Controlled Substance Measures Is patient prescribed a controlled substance at discharge?: No
== END ==
LOC: PNWHC3 13:22
PROVIDERS: ATTEND Specialist
DX: M47.816 Spondylosis without myelopathy or radiculopathy, lumbar region (principal); M51.36 Other intervertebral disc degeneration, lumbar region; M46.1 Sacroiliitis, not elsewhere classified; Z88.2 Allergy status to sulfonamides; Z88.0 Allergy status to penicillin; F17.200 Nicotine dependence, unspecified, uncomplicated
CPT/HCPCS: 99211

== ENCOUNTER → 2023-03-04 | Outpatient (CLI) | payer MEDICARE ==
--- NOTE | 2023-03-04 22:46 | BD ---
EXAMINATION TYPE: Axial Bone Density DATE OF EXAM: 03/04/2023 CLINICAL HISTORY: 72 years old Female. ICD-10 CODE: M81.0 OSTEOPOROSIS Height: Weight: FRAX RISK QUESTIONS: Family History (Parent hip fracture): no fx Glucocorticoids (More than 3mos): yes (Ex: prednisone, prednisolone, methylprednisolone, dexamethasone, and hydrocortisone). Secondary Osteoporosis: yes 3. Menopause before 45: at 43 Current Tobacco Use: yes RISK FACTORS HISTORY OF: Family History of Osteoporosis: yes, no fx Postmenopausal woman: yes, at 43 with hysterectomy, Lost more than 2 inches in height since high school: yes Hyperparathyroidism: no Adrenal Insufficiency: no MEDICATIONS: Prednisone or other steroids: yes, over 20 yrs, copd, asthma, inhalers and oral Thyroid Medications: yes, synthroid for 20 + yrs. Osteoporosis Medications: fosamax for 2 yrs now Additional Medications: Ramco, antianxiety/antidepressant meds, statin for cholesterol, vit d and ivana cium, Additional History: anxiety, cholesterol, osteoporosis, thyroid, copd, asthma, EXAM MEASUREMENTS: Bone mineral densitometry was performed using the [employer] System. Bone mineral density as measured about the Lumbar spine is: ----- L1-L4(G/cm2): 0.898 T Score Values are as follows: ----- L1: -2.9 ----- L2: -2.9 ----- L3: -2.2 ----- L4: -1.6 ----- L1-L4: -2.4 Z Score Values are as follows: ----- L1: -0.8 ----- L2: -0.9 ----- L3: -0.2 ----- L4: 0.4 ----- L1-L4: -0.3 Bone mineral density has: Decreased -4.6% since study of: 02.21.2021 Bone mineral density about the R hip (g/cm2): 0.774 Bone mineral density about the L hip (g/cm2): 0.709 T Score values are as follows: -----R Neck: -2.4 -----L Neck: -2.8 -----R Total: -1.9 -----L Total: -2.4 Z Score values are as follows: -----R Neck: -0.3 -----L Neck: -0.7 -----R Total: 0.1 -----L Total: -0.4 Bone mineral density has: Increased 4.1% since study of: 02.21.2021 FRAX%s: The graph provided illustrates a 29.7% chance for a major osteoporotic fx and a 17.1% chance for the hips probability for fx in 10 years time. IMPRESSION: Osteoporosis (T Score less than -2.5). There is increased fracture risk and therapy is usually indicated based on age. Re-Screen 1-2 years. NOTE: T-SCORE=SD OF THE YOUNG ADULT MEAN.
--- NOTE | 2023-03-05 08:14 | MM ---
Reason for Exam: Screening (asymptomatic). Last screening mammogram was performed 12 month(s) ago. Patient History: Menarche at age 11. First Full-Term at age 21. Hysterectomy at age 48. Postmenopausal. Other cancer at or over age 48. Patient used Hormonal Contraceptives for 2 years. Benign Excisional Biopsy. Sister had breast cancer at or over age 50. Risk Values: Roxie 5 year model risk: 4.0%. NCI Lifetime model risk: 9.0%. Prior Study Comparison: 02/21/2021 Bilateral Screening Mammogram, [facility]. 02/22/2022 Bilateral Screening Mammogram, [facility]. 02/27/2022 Left MG 3D work up w/cad , [facility]. Tissue Density: There are scattered fibroglandular densities. Findings: Analyzed By CAD. Left breast: An indeterminant lesion within the left breast seen on MLO view only approximately 14.9 cm from the nipple measuring 11 x 7 mm this could represent a lymph node not seen before. Right breast: There is no suspicious group of microcalcifications or new suspicious mass in either breast. Overall Assessment: Incomplete: need additional imaging evaluation, BI-RAD 0 Management: Diagnostic Mammogram of the left breast. [facility] will attempt to contact patient to return for supplemental views and ultrasound if indicated. Patient should continue monthly self-breast exams. A clinical breast exam by your physician is recommended on an annual basis. This exam should not preclude additional follow-up of suspicious palpable abnormalities. Note on Roxie scores and lifetime risk: 1. A Roxie score greater than 3% is considered moderate risk. If this is the case, consider specialist referral to assess eligibility for a risk reducing agent. 2. If overall lifetime risk for the development of breast cancer is 20% or higher, the patient may qualify for future screening with alternating mammogram and breast MRI. Electronically signed and approved by: Fernando Huang DO
== END | disposition home or self-care (01) ==
LOC: RADBDWWP 12:32
PROVIDERS: ATTEND Family Medicine
DX: Z12.31 Encounter for screening mammogram for malignant neoplasm of breast (principal); M81.0 Age-related osteoporosis without current pathological fracture; M85.89 Other specified disorders of bone density and structure, multiple sites; Z78.0 Asymptomatic menopausal state
CPT/HCPCS: 77067; 77080

== ENCOUNTER → 2023-03-08 | Outpatient (CLI) | payer MEDICARE ==
--- NOTE | 2023-03-08 10:26 | MM ---
Reason for Exam: Additional evaluation requested from abnormal screening. Last screening mammogram was performed less than 1 month ago. Patient History: Menarche at age 11. First Full-Term at age 21. Hysterectomy at age 48. Postmenopausal. Other cancer at or over age 48. Patient used Hormonal Contraceptives for 2 years. Benign Excisional Biopsy. Sister had breast cancer at or over age 50. Risk Values: Roxie 5 year model risk: 4.0%. NCI Lifetime model risk: 9.0%. Prior Study Comparison: 02/22/2022 Bilateral Screening Mammogram, [facility]. 02/27/2022 Left MG 3D work up w/cad LT, [facility]. 03/04/2023 Bilateral MG screening mammo w CAD, [facility]. Tissue Density: Left: The breast tissue is heterogeneously dense. This may lower the sensitivity of mammography. Findings: Analyzed By CAD. A skin lesion corresponds to area of concern on the most recent mammogram. No suspicious new mass is present. Overall Assessment: Benign, BI-RAD 2 Management: Screening Mammogram of both breasts in 1 year. Return to routine follow-up. Results were given to the patient verbally at the time of exam. Patient should continue monthly self-breast exams. A clinical breast exam by your physician is recommended on an annual basis. This exam should not preclude additional follow-up of suspicious palpable abnormalities. Note on Roxie scores and lifetime risk: 1. A Roxie score greater than 3% is considered moderate risk. If this is the case, consider specialist referral to assess eligibility for a risk reducing agent. 2. If overall lifetime risk for the development of breast cancer is 20% or higher, the patient may qualify for future screening with alternating mammogram and breast MRI. Electronically signed and approved by: Stewart Leyva M.D.
== END | disposition home or self-care (01) ==
LOC: RADMAMWWP 10:02
PROVIDERS: ATTEND Family Medicine
DX: R92.8 Other abnormal and inconclusive findings on diagnostic imaging of breast (principal); Z78.0 Asymptomatic menopausal state; Z80.3 Family history of malignant neoplasm of breast
CPT/HCPCS: 77061; 77065

== ENCOUNTER → 2023-12-20 | Outpatient (CLI) | payer MEDICARE ==
[2023-12-20 23:22] LABS: Cryptosporidium Antigen Negative (Negative)
== END | disposition home or self-care (01) ==
LOC: LABWHC1 11:51
PROVIDERS: ATTEND Family Medicine
DX: R19.7 Diarrhea, unspecified (principal)
CPT/HCPCS: 83630; 87045; 87046; 87328; 87329

== ENCOUNTER → 2024-03-06 | Outpatient (CLI) | payer MEDICARE ==
--- NOTE | 2024-03-11 23:33 | MM ---
Reason for Exam: Screening (asymptomatic). Last screening mammogram was performed 12 month(s) ago. Patient History: Menarche at age 11. First Full-Term at age 21. Hysterectomy at age 48. Postmenopausal. Other cancer at or over age 48. Patient used Hormonal Contraceptives for 2 years. Benign Excisional Biopsy. Sister had breast cancer at or over age 50. Risk Values: Roxie 5 year model risk: 4.0%. NCI Lifetime model risk: 8.5%. Prior Study Comparison: 02/27/2022 Left MG 3D work up w/cad LT, [facility]. 03/04/2023 Bilateral MG screening mammo w CAD, [facility]. 03/08/2023 Left MG 3D work up w/cad LT, [facility]. Tissue Density: The breasts are heterogeneously dense, which may obscure small masses. Findings: Analyzed By CAD. The pattern is symmetrical. Pattern appears stable No suspicious groups of microcalcifications, spiculated or lobular masses, architectural distortion or other secondary signs of malignancy are mammographically apparent. Overall Assessment: Benign, BI-RAD 2 Management: Screening Mammogram of both breasts in 1 year. A negative mammogram report should not preclude additional follow up of suspicious palpable abnormalities. Patient should continue monthly self breast exam. A clinical breast exam by your physician is recommended on an annual basis and results should be correlated with mammographic findings. Note on Roxie scores and lifetime risk: 1. A Roxie score greater than 3% is considered moderate risk. If this is the case, consider specialist referral to assess eligibility for a risk reducing agent. 2. If overall lifetime risk for the development of breast cancer is 20% or higher, the patient may qualify for future screening with alternating mammogram and breast MRI. Electronically signed and approved by: Jose Manuel Devine D.O. Radiologis
== END | disposition home or self-care (01) ==
LOC: RADMAMWWP 13:33
PROVIDERS: ATTEND Family Medicine
DX: Z12.31 Encounter for screening mammogram for malignant neoplasm of breast (principal); Z78.0 Asymptomatic menopausal state; Z80.3 Family history of malignant neoplasm of breast
CPT/HCPCS: 77063; 77067

== ENCOUNTER 2024-04-01 08:39 | Day surgery (SDC) | payer MEDICARE ==
[2024-03-26 13:58] VITALS: BMI 17.2
[2024-04-01] MEDS ORDERED: LACTATED RINGERS 1,000 ML IV SCH (09:03)
[2024-04-01] MEDS ORDERED: LIDOCAINE 1% (10MG/ML) FOR IV START INTRADERMA PRN (09:03)
[2024-04-01 09:12] VITALS: TEMP 98.1
[2024-04-01] MEDS: IV FLUID CONTINUATION 1,000 ML IV ONE (09:22)
[2024-04-01] MEDS ORDERED: LIDOCAINE 1% INJ 10MG/ML (20 ML MDV) ONE (09:24)
[2024-04-01] MEDS ORDERED: PROPOFOL 10 MG/ML 20 ML VIAL IV ONE (09:24)
--- NOTE | 2024-04-01 09:50 | P.PCN ---
Date of Procedure: 04/01/24 Procedure(s) Performed: Brief history: Patient is a pleasant 73-year-old white female scheduled for an elective upper endoscopy as well as colonoscopy as a part of evaluation of GERD/chronic diarrhea/weight loss of 20 pounds in the last 6 months duration Procedure performed: Esophagogastroduodenoscopy with biopsy Colonoscopy with biopsy Preoperative diagnosis: GERD Chronic diarrhea and weight loss Anesthesia: MAC Procedure: After informed consent was obtained from the patient was brought into the e ndoscopy unit and IV sedation was administered by anesthesia under continuous monitoring. Initially upper endoscopy was done. The Olympus GF 160 video endoscope was inserted inserted into the mouth and esophagus intubated without any difficulty and was gradually advanced into the stomach and duodenum and carefully examined. In the bulb of duodenum there was a 1 cm flat polyp that was biopsied. The second part of the duodenum appeared normal. This were done from this area to evaluate for celiac disease. The scope was then withdrawn into the stomach adequately insufflated with air and upon careful examination the antrum Body, cardia and fundus appeared normal. The scope was then withdrawn into the esophagus. The GE junction was located at 33 cm to the incisors. Hiatal hernia noted. The GE junction appeared slightly irregular and biopsies were done from this area. Rest of the esophagus appeared normal. Patient tolerated the procedure well. At this time the patient continued to remain sedation. Initial digital rectal examination was normal. Olympus CF 160 video colonoscope was then inserted into the rectum and gradually advanced to the cecum without any difficulty. Careful examination was performed as the scope was gradually being withdrawn. The prep was excellent. The cecum, ascending colon, transverse colon, descending colon, sigmoid colon and rectum appeared normal. 4 mm proximal rectal polyp noted that was removed by cold biopsy. Scattered sigmoid diverticulosis. Random biopsies were done from the ascending and descending colon rule out microscopic/ collagenous colitis. Retroflexion was performed in the rectum and no lesions were noted. Patient tolerated the procedure well. Impression: 1. Upper endoscopy revealed 1 cm flat duodenal polyp in the bulb of the duodenum s/p biopsies, small hiatal hernia and short segment [place]'s esophagus 2. Colonoscopy revealed 4 mm proximal rectal polyp status post cold biopsy and scattered sigmoid diverticulosis Recommendations: Findings of this examination were discussed with the patient as well as her family. She was advised to follow-up with the biopsy results. Follow-up in the office in 2 weeks. If the biopsy of the colon polyp reveals adenoma, recommended repeat colonoscopy in 5 years.
[2024-04-01 10:01] VITALS: PULSE 61; RESP 16
[2024-04-01 10:14] VITALS: BP 132/68
== END 2024-04-01 10:31 | disposition home or self-care (01) ==
LOC: ORWHC2ENDO 08:39
PROVIDERS: ATTEND Internal Medicine Gastroenterology
DX: D12.8 Benign neoplasm of rectum (principal); K52.9 Noninfective gastroenteritis and colitis, unspecified; K21.9 Gastro-esophageal reflux disease without esophagitis; K22.70 Barrett's esophagus without dysplasia; K31.7 Polyp of stomach and duodenum; K44.9 Diaphragmatic hernia without obstruction or gangrene; K57.30 Diverticulosis of large intestine without perforation or abscess without bleeding; Z79.899 Other long term (current) drug therapy
CPT/HCPCS: 88305; 45380; 43239; J2001; J2704

== ENCOUNTER → 2024-04-15 | Day surgery (SDC) | payer MEDICARE ==
[2024-04-14 09:30] VITALS: BMI 17.2
[~2024-04-15] MED LIST: LIDOCAINE 1% INJ 10MG/ML (20 ML MDV) ONE; PROPOFOL 10 MG/ML 20 ML VIAL IV ONE
[2024-04-15 11:52] VITALS: TEMP 97
[2024-04-15] MEDS: IV FLUID CONTINUATION 1,000 ML IV ONE (11:58)
[2024-04-15] MEDS: LACTATED RINGERS 1,000 ML BAG IV STA (11:58)
--- NOTE | 2024-04-15 12:55 | P.PCN ---
Date of Procedure: 04/15/24 Procedure(s) Performed: BRIEF HISTORY: Patient is a 73-year-old, pleasant, white female scheduled for an upper endoscopy as part of follow-up of duodenal adenoma. She had an upper endoscopy last month and was noted to have a 1 cm duodenal polyp that was biopsied which revealed adenoma. She is scheduled for an upper endoscopy for polypectomy.. PROCEDURE PERFORMED: Esophagogastroduodenoscopy with snare polypectomy. PREOPERATIVE DIAGNOSIS: Follow-up duodenal polyp. IV sedation per anesthesia. PROCEDURE: After informed consent was obtained, the patient was brought into the endoscopy unit. IV sedation was administered by Anesthesia under continuous monitoring. Initially the Olympus GIF-140 video endoscope was inserted into the mouth. Esophagus intubated without any difficulty. It was gradually advanced into the stomach and duodenum and carefully examined. The second part of the duodenum appeared normal. In the bulb of the duodenum there was a 1 cm broad- based polyp that was removed by piecemeal snare polypectomy and complete polypectomy accomplished. The scope at this time was withdrawn to the stomach, adequately insufflated with air, and upon careful examination, mucosa of the antrum, body, and mild gastritis. Mucosa of the cardia and the fundus appeared normal. The scope was then withdrawn into the esophagus. The GE junction was located at 39 cm from the incisors. The esophagus appeared normal. There were no erosions or ulcerations seen and the patient tolerated the procedure well. IMPRESSION: 1. 1 cm broad-based duodenal bulb polyps s/p snare polypectomy. 2. Mild antral gastritis. RECOMMENDATIONS: The findings of this examination were discussed with the patient as well as her family. She was advised to follow with the biopsy results and have repeat upper endoscopy in 1 year..
[2024-04-15 13:01] VITALS: RESP 16
[2024-04-15 13:16] VITALS: BP 114/72; PULSE 65
== END ==
LOC: ORWHC2ENDO 10:56
PROVIDERS: ATTEND Internal Medicine Gastroenterology
DX: D13.2 Benign neoplasm of duodenum (principal); K29.70 Gastritis, unspecified, without bleeding; J44.9 Chronic obstructive pulmonary disease, unspecified; E07.9 Disorder of thyroid, unspecified; K21.9 Gastro-esophageal reflux disease without esophagitis; C91.10 Chronic lymphocytic leukemia of B-cell type not having achieved remission; F17.200 Nicotine dependence, unspecified, uncomplicated; Z88.0 Allergy status to penicillin; Z88.2 Allergy status to sulfonamides; Z79.890 Hormone replacement therapy; Z79.899 Other long term (current) drug therapy; Z91.09 Other allergy status, other than to drugs and biological substances; Z79.51 Long term (current) use of inhaled steroids
CPT/HCPCS: 88305; 43251; J2001; J2704

== ENCOUNTER → 2024-05-04 | Outpatient (CLI) | payer MEDICARE ==
[2024-05-04 16:02] LABS: ALT 35 U/L (8-44); AST 47 U/L (13-35); Albumin 4.5 g/dL (3.8-4.9); Albumin/Globulin Ratio 1.73 Ratio (1.60-3.17); Alkaline Phosphatase 80 U/L (41-126); BUN/Creat Ratio 13.67 Ratio (12.00-20.00); Blood Urea Nitrogen 12.3 mg/dL (9.0-27.0); Calcium 9.9 mg/dL (8.7-10.3); Carbon Dioxide 24.9 mmol/L (21.6-31.8); Chloride 104 mmol/L (96-109); Globulin 2.6 g/dL (1.6-3.3); Glucose 89 mg/dL (70-110); Potassium 4.8 mmol/L (3.5-5.5); Sodium 141 mmol/L (135-145); Total Bilirubin 0.3 mg/dL (0.3-1.2); Total Protein 7.1 g/dL (6.2-8.2)
[2024-05-04 16:19] LABS: Basophils # (A) 0.04 X 10*3/uL (0.00-0.10); Basophils % (A) 0.3 %; Eosinophils # (A) 0.02 X 10*3/uL (0.04-0.35); Eosinophils % (A) 0.1 %; HCT 46.1 % (37.2-46.3); HGB 14.9 g/dL (12.0-15.0); Lymphocytes # (A) 4.93 X 10*3/uL (0.90-5.00); Lymphocytes % (A) 35.9 %; MCH 31.3 pg (27.0-32.0); MCHC 32.3 g/dL (32.0-37.0); MCV 96.8 FL (80.0-97.0); Mean Platelet Volume 12.3 FL (9.5-12.2); Monocytes # (A) 0.75 X 10*3/uL (0.20-1.00); Monocytes % (A) 5.5 %; NRBC Per 100 WBC 0 X 10*3/uL (0.00-0.01); Neutrophils # (A) 7.95 X 10*3/uL (1.80-7.70); Platelet Count 191 X 10*3/uL (140-440); RBC 4.76 X 10*6/uL (4.10-5.20); RDW 13.7 % (11.5-14.5); WBC 13.72 X 10*3/uL (4.50-10.00)
== END | disposition home or self-care (01) ==
LOC: LABWHC1 10:43
PROVIDERS: ATTEND Internal Medicine Hematology & Oncology
DX: C91.10 Chronic lymphocytic leukemia of B-cell type not having achieved remission (principal)
CPT/HCPCS: 36415; 80053; 83625; 85025

== ENCOUNTER → 2024-08-04 | Outpatient (CLI) | payer MEDICARE ==
[2024-08-04 15:49] LABS: HCT 45.5 % (37.2-46.3); HGB 14.7 g/dL (12.0-15.0); MCH 31.6 pg (27.0-32.0); MCHC 32.3 g/dL (32.0-37.0); MCV 97.8 FL (80.0-97.0); Mean Platelet Volume 12.3 FL (9.5-12.2); NRBC Per 100 WBC 0 X 10*3/uL (0.00-0.01); Platelet Count 222 X 10*3/uL (140-440); RBC 4.65 X 10*6/uL (4.10-5.20); RDW 14.1 % (11.5-14.5); WBC 12.65 X 10*3/uL (4.50-10.00)
[2024-08-04 16:21] LABS: Basophils # (M) 0 X 10*3/uL (0.00-0.10); Eosinophils # (M) 0.13 X 10*3/uL (0.04-0.35); Lymphocytes # (M) 5.19 X 10*3/uL (0.90-5.00); Monocytes # (M) 0.76 X 10*3/uL (0.20-1.00); Neutrophils # (M) 6.58 X 10*3/uL (1.80-7.70); Neutrophils % (M) 52 %; RBC Morphology Normal (Normal)
[2024-08-04 17:44] LABS: ALT 26 U/L (8-44); AST 36 U/L (13-35); Albumin 4.4 g/dL (3.8-4.9); Albumin/Globulin Ratio 1.69 Ratio (1.60-3.17); Alkaline Phosphatase 74 U/L (41-126); BUN/Creat Ratio 19.75 Ratio (12.00-20.00); Blood Urea Nitrogen 15.8 mg/dL (9.0-27.0); Calcium 9.9 mg/dL (8.7-10.3); Chloride 101 mmol/L (96-109); Globulin 2.6 g/dL (1.6-3.3); Glucose 87 mg/dL (70-110); Potassium 4.5 mmol/L (3.5-5.5); Sodium 140 mmol/L (135-145); Total Bilirubin 0.3 mg/dL (0.3-1.2)
== END | disposition home or self-care (01) ==
LOC: LABWHC1 12:02
PROVIDERS: ATTEND Internal Medicine Hematology & Oncology
DX: C91.10 Chronic lymphocytic leukemia of B-cell type not having achieved remission (principal)
CPT/HCPCS: 36415; 80053; 85025

== ENCOUNTER → 2025-02-09 | Outpatient (CLI) | payer MEDICARE ==
--- NOTE | 2025-02-09 15:27 | CTL ---
EXAMINATION TYPE: CT Low Dose Lung DATE OF EXAM ORDERED: 02/09/2025 COMPARISON: None CLINICAL INDICATION: Female, 74 years old with history of Z12.2 ENCNTR SCREEN FOR F17.210 NICOTINE DE PENDENT; [facility], , Lung cancer screening, History of Smoking/tobacco use. TECHNIQUE: Low dose computed tomography scan was performed through the chest at 1 mm thick sections a nd reconstructed images in multiple planes at 1 mm and [address] DLP: mGycm CT CTDI: mGy Automated exposure control for dose reduction was used. CT DIAGNOSTIC QUALITY: Satisfactory EXAMINATION TYPE: CT Low Dose Lung DATE OF EXAM ORDERED: 02/09/2025 CLINICAL INDICATION: Female, 74 years old with history of Z12.2 ENCNTR SCREEN FOR F17.210 NICOTINE DE PENDENT, history of tobacco use, Lung cancer screening CT DLP: mGycm CT CTDI: mGy Automated exposure control for dose reduction was used. Comparison: None TECHNIQUE: Low dose computed tomography scan was performed through the chest at 1 mm thick sections a nd reconstructed images in multiple planes at 1 mm and [address] DIAGNOSTIC QUALITY: Satisfactory FINDINGS: There are marked emphysematous changes with an upper lobe predominance. There is mild to moderate ple ural parenchymal scarring in the apices. There are scattered micronodules. There is no airspace consolidation. There are mild scattered interstitial densities in the right midd le lobe medially and within the lingula. There is no mediastinal, hilar or axillary adenopathy. There is no pleural effusion, pleural thickening or pneumothorax. No focal osseous lesions are seen. Limited scans the upper abdomen reveals no gross abnormality IMPRESSION: 1. Lung rads Category 2 negative. Continue routine screening at yearly intervals. 2. Marked emphysematous changes. 3. No acute cardiopulmonary disease. [facility], , 02/09/2025 3:25 PM
== END | disposition home or self-care (01) ==
LOC: RADCTMAIN 14:15
PROVIDERS: ATTEND Internal Medicine
DX: Z12.2 Encounter for screening for malignant neoplasm of respiratory organs (principal); F17.210 Nicotine dependence, cigarettes, uncomplicated; J43.9 Emphysema, unspecified
CPT/HCPCS: 71271